=== PATIENT | male | born 1970 | race African-American/Black ===

== ENCOUNTER 2019-08-15 13:51 | Emergency (ER) | payer MEDICAID, OTHER ==
[~2019-08-15] VITALS: Ht 167.6 cm; Wt 128.0 kg
[~2019-08-15 13:51] MED LIST: ATENOLOL; LEVO75TA PO; VICODIN
[2019-08-15] MEDS ORDERED: OXYMETAZOLINE HCL NASAL SPRAY 15ML BOTHNSTRLS SCH (14:30)
[2019-08-15 15:30] LABS: HEMATOCRIT 45.5 % (42.0-52.0); HEMOGLOBIN 15.4 g/dL (14.0-18.0); MEAN CORPUSCULAR HEMOGLOBIN 28.4 pg (28.0-32.0); MEAN CORPUSCULAR VOLUME 83.7 fL (80.0-94.0); PLATELET 366 x1000/uL (130-400); RED BLOOD CELL COUNT 5.44 mill/uL (4.7-6.1); RED CELL DISTRIBUTION WIDTH 13.4 % (11.6-14.6)
[2019-08-15 16:05] VITALS: BP 135/75
== END 2019-08-15 17:17 | disposition home or self-care (01) ==
LOC: ER 13:51
DX: R04.0 Epistaxis (principal); I10 Essential (primary) hypertension; E78.5 Hyperlipidemia, unspecified; Z88.2 Allergy status to sulfonamides
CPT/HCPCS: 36415; 85027; 99283